=== PATIENT | female | born 1955 | race African-American/Black ===

== ENCOUNTER 2019-02-25 10:05 | Emergency (ER) | payer MEDICAID ==
[~2019-02-25] VITALS: Ht 165.1 cm; Wt 91.0 kg
[2019-02-25] MEDS ORDERED: MAGNESIUM/ALUMINUM HYDROXIDE/SIMETHICONE 30ML UDC PO STA (11:02)
[2019-02-25] MEDS ORDERED: VISCOUS LIDOCAINE 2% 15 ML UDC PO STA (11:02)
[2019-02-25] MEDS ORDERED: FAMOTIDINE 20MG/2ML VIAL IV STA (11:02)
[2019-02-25] MEDS ORDERED: METOCLOPRAMIDE HCL 10MG/2ML VIAL IV STA (11:02)
[2019-02-25] MEDS ORDERED: SODIUM CHLORIDE 0.9% 1,000 ML IV ONE ×2 (11:02→13:26)
[2019-02-25 11:42] LABS: BASOPHILS % 0.4 % (0.0-2.0); EOSINOPHILS % 4.3 % (0.0-5.0); HEMATOCRIT. 40.8 % (36.0-48.0); HEMOGLOBIN. 13.7 g/dL (12.0-16.0); LYMPHOCYTES % 36.2 % (20.0-50.0); MEAN CORPUSCULAR HEMOGLOBIN 29.4 pg (28.0-32.0); MEAN CORPUSCULAR VOLUME 87.6 fL (81.0-99.0); MEAN PLATELET VOLUME 10.4 fl (7.4-10.4); MONOCYTES % 8.2 % (2.0-8.0); NEUTROPHILS % 50.9 % (40.0-76.0); PLATELET 255 x1000/uL (130-400); RED BLOOD CELL COUNT 4.66 mill/uL (4.2-5.4); RED CELL DISTRIBUTION WIDTH 12.7 % (11.6-14.6)
[2019-02-25 11:48] LABS: CHLORIDE 109 mEq/L (98-107)
[2019-02-25] MEDS ORDERED: IOHEXOL-300 100 ML BOTTLE ONE (12:32)
[2019-02-25] MEDS ORDERED: INSULIN REGULAR (HUMULIN R) UD 100 UNITS/ML SYR IV ONE (13:30)
[2019-02-25 14:15] LABS: CLARITY URINE CLEAR (CLEAR); COLOR URINE YELLOW (YELLOW); KETONES URINE NEGATIVE (NEGATIVE); LEUKOCYTE ESTERASE URINE NEGATIVE (NEGATIVE); NITRITE URINE NEGATIVE (NEGATIVE); OCCULT BLOOD URINE TRACE (NEGATIVE); PH URINE 5.5 (4.5-8.0); PROTEIN URINE TRACE (NEGATIVE); SPECIFIC GRAVITY URINE 1.024 (1.005-1.030); UROBILINOGEN URINE 0.2 E.U./dL (0.2-1.0)
[2019-02-25] MEDS ORDERED: INSULIN REGULAR (HUMULIN R) 300UNITS/3ML IV NR (14:15)
[2019-02-25 15:25] VITALS: BP 142/82
== END 2019-02-25 15:32 | disposition home or self-care (01) ==
LOC: ER 10:05
DX: R11.2 Nausea with vomiting, unspecified (principal); R42 Dizziness and giddiness; E11.9 Type 2 diabetes mellitus without complications; I10 Essential (primary) hypertension; Z90.49 Acquired absence of other specified parts of digestive tract; Z90.710 Acquired absence of both cervix and uterus; Z88.6 Allergy status to analgesic agent; Z98.890 Other specified postprocedural states
CPT/HCPCS: 36415; 74177; 80053; 81003; 82962; 83605; 83690; 84484; 85025; 93005; 96361; 96374; 96375; 99284; J1815; J2765; J3490; J7030; Q9967